=== PATIENT | female | born 1980 | race Caucasian/White ===

== ENCOUNTER 2017-06-01 06:02 | Day surgery (SDC) | payer OTHER ==
[~2017-06-01] VITALS: Ht 160 cm; Wt 66.2 kg
[2017-06-01] MEDS ORDERED: CLINDAMYCIN 600 MG in DEXTROSE 5% 50 ML IV SCH (07:00)
[2017-06-01] MEDS ORDERED: BUPIVACAINE-MPF 0.25% 30 ML VIAL INJ ONE (08:38)
[2017-06-01] MEDS ORDERED: PROPOFOL 200 MG/20 ML VIAL IV ONE (09:45)
[2017-06-01] MEDS ORDERED: CLINDAMYCIN 600 MG/4 ML VIAL ONE (09:45)
[2017-06-01] MEDS ORDERED: MIDAZOLAM 2 MG/2 ML VIAL ONE (09:55)
[2017-06-01] MEDS ORDERED: fentaNYL 0.05 MG/ML VIAL ONE (09:55)
[2017-06-01] MEDS ORDERED: BLOOD GLUCOSE MONITORING 1 DEV DEV FS SCH (10:20)
[2017-06-01] MEDS ORDERED: HYDROmorphone 1 MG/ML AMP IVP PRN (10:20)
[2017-06-01] MEDS ORDERED: ONDANSETRON 4 MG/2 ML VIAL IVP PRN (10:20)
[2017-06-01] MEDS ORDERED: HYDROcodone/APAP 5/325 MG 1 TAB TAB PO PRN (10:50)
[2017-06-01] MEDS ORDERED: MORPHINE SULFATE 4 MG/ML SYR IV PRN (10:50)
[2017-06-01] MEDS ORDERED: MORPHINE SULFATE 2 MG/ML SYR IVP PRN (10:50)
[2017-06-01] MEDS ORDERED: HYDROmorphone PFS 2 MG/ML SYR IVP PRN (10:50)
== END 2017-06-01 12:30 | disposition home or self-care (01) ==
LOC: MDS 06:02 → MMU 06:03 → MDS 12:30
PROVIDERS: ATTEND Surgery
DX: N63.20 Unspecified lump in the left breast, unspecified quadrant (principal); E11.22 Type 2 diabetes mellitus with diabetic chronic kidney disease; I12.9 Hypertensive chronic kidney disease with stage 1 through stage 4 chronic kidney disease, or unspecified chronic kidney disease; N18.9 Chronic kidney disease, unspecified; E66.3 Overweight; J45.909 Unspecified asthma, uncomplicated; G40.909 Epilepsy, unspecified, not intractable, without status epilepticus; F03.90 Unspecified dementia, unspecified severity, without behavioral disturbance, psychotic disturbance, mood disturbance, and anxiety; D64.9 Anemia, unspecified; Z88.0 Allergy status to penicillin; F17.210 Nicotine dependence, cigarettes, uncomplicated; Z98.890 Other specified postprocedural states; Z79.899 Other long term (current) drug therapy
CPT/HCPCS: 19120; 71045; J2250; J2704; J3010; J3490; J7030; J7060; J7120